=== PATIENT | male | born 1970 | race American Indian/Alaskan Native ===

== ENCOUNTER 2022-09-06 20:06 | Inpatient (IN) | payer OTHER ==
[2022-09-06] MEDS ORDERED: Sodium Chloride 0.9% 10 ML Syringe FLUSH PRN (20:26)
[2022-09-06] MEDS ORDERED: Albuterol/Ipratropium 3.0-0.5 MG/3 ML Neb Soln NEB ONE ×2 (20:31→21:25)
[2022-09-06 21:06] LABS: HEMATOCRIT 38.8 % (40.1-51.0); MEAN CORPUSCULAR HEMOGLOBIN 31.9 pg (25.7-32.2); MEAN CORPUSCULAR HGB CONC 33.5 g/dl (32.2-35.5); MEAN CORPUSCULAR VOLUME 95.1 fl (79.0-92.2); MEAN PLATELET VOLUME 9.8 fl (9.4-12.3); PLATELET COUNT,PLT 273 K/mm3 (163-337); RED BLOOD CELL COUNT 4.08 M/mm3 (4.63-6.08); WHITE BLOOD CELL COUNT,WBC 8.34 K/mm3 (4.23-9.07)
[2022-09-06 21:12] LABS: INR 0.97; PROTHROMBIN TIME 10.4 SECONDS (9.7-12.0)
[2022-09-06] MEDS ORDERED: methylPREDNISolone Sodium Succinate 125 MG/2 ML SDV IVPUSH ONE (21:25)
[2022-09-06 21:28] LABS: LACTIC ACID 1.4 mmol/L (0.4-2.0)
[2022-09-06 21:38] LABS: A/G RATIO 0.7 (1-2); ANION GAP 10.6 (5-15); BILIRUBIN TOTAL 0.9 mg/dL (0.2-1.0); BUN/CREATININE RATIO 7.8 (14-18); C-REACTIVE PROTEIN 2.6 mg/dL (<1.0); CALCIUM 7.8 mg/dL (8.5-10.1); CREATININE 1.8 mg/dL (0.7-1.3); EST CRCL DRUG DOSING (CG) 49.57 mL/min; POTASSIUM,K 2.6 mEq/L (3.5-5.1); PROTEIN TOTAL,TP 7.4 g/dl (6.4-8.2)
[2022-09-06 21:41] LABS: BAND PERCENT MAN 0 % (0-10); BASOPHILS PERCENT MAN 1 (0.2-1.2); EOSINOPHILS PERCENT MAN 0 % (0.8-7.0); LYMPHOCYTES % ATYPICAL MANUAL 0 %; LYMPHOCYTES PERCENT MAN 51 % (20-40); MONOCYTES PERCENT MAN 4 % (2-10); MYELOCYTE PERCENT MAN 1
[2022-09-06 21:42] LABS: PLATELET COUNT ESTIMATE ADEQUATE
[2022-09-06] MEDS ORDERED: Potassium Chloride 20 MEQ Tab.ER PO ONE ×2 (21:45→22:58)
[2022-09-06] MEDS ORDERED: Iopamidol 755 Mg/ML 100 ML Bottle IVPUSH ONE (22:04)
[2022-09-06] MEDS ORDERED: Sodium Chloride 0.9% 10 ML Syringe FLUSH ONE (22:04)
[2022-09-06] MEDS ORDERED: Iopamidol 755 MG/ML 50 ML Bottle IVPUSH ONE (22:06)
[2022-09-06] MEDS ORDERED: Sodium Chloride 0.9% 1,000 ML IV STA (22:06)
[2022-09-06 22:12] LABS: CORONAVIRUS COVID-19 NAA NEGATIVE (NEGATIVE); INFLUENZA A NAA NEGATIVE (NEGATIVE); RESPIRATORY SYNCYTIAL VIR NAA NEGATIVE (NEGATIVE)
[2022-09-06] MEDS ORDERED: Sodium Chloride 0.9% 100 ML IV SCH (22:15)
[2022-09-07] MEDS ORDERED: Sodium Chloride 0.9% 1,000 ML IV SCH (06:00)
[2022-09-07] MEDS ORDERED: Albuterol/Ipratropium 3.0-0.5 MG/3 ML Neb Soln NEB PRN (07:32)
[2022-09-07] MEDS ORDERED: Docusate Sodium 100 MG Cap PO PRN (07:32)
[2022-09-07] MEDS ORDERED: Albuterol 0.083% 2.5 MG/3 ML Neb Soln NEB PRN (08:23)
[2022-09-07] MEDS ORDERED: traMADol 50 MG Tab PO PRN (08:25)
[2022-09-07] MEDS ORDERED: methylPREDNISolone Sodium Succinate 40 MG/1 ML SDV IVPUSH SCH (09:00)
[2022-09-07] MEDS ORDERED: predniSONE 10 MG Tab PO SCH (09:00)
[2022-09-07] MEDS: Albuterol/Ipratropium 3.0-0.5 MG/3 ML Neb Soln NEB SCH ×3 (09:13→20:17)
[2022-09-07] MEDS: Losartan 100 MG Tab PO SCH (09:57)
[2022-09-07] MEDS: Doxycycline Monohydrate 100 MG Cap PO SCH ×2 (09:57→21:26)
[2022-09-07] MEDS: Gabapentin 100 MG Cap PO SCH ×4 (09:57→21:27)
[2022-09-07] MEDS: Gabapentin 600 MG Tab PO SCH ×4 (09:57→21:27)
[2022-09-07] MEDS: Pantoprazole 40 MG Tab.CR PO SCH (09:57)
[2022-09-07] MEDS: predniSONE 20 MG Tab PO SCH (09:58)
[2022-09-07] MEDS: guaiFENesin/Dextromethorphan 100-10 MG/5 ML Soln 5 ML Cup PO SCH ×3 (09:58→21:25)
[2022-09-07] MEDS: traMADol 50 MG Tab PO SCH ×3 (14:06→21:26)
[2022-09-07] MEDS: Acetaminophen 325 MG Tab PO PRN (23:15)
[2022-09-08] MEDS ORDERED: traMADol 50 MG Tab PO SCH (04:00)
[2022-09-08] MEDS: traMADol 50 MG Tab PO SCH ×5 (04:29→20:52)
[2022-09-08] MEDS: Albuterol/Ipratropium 3.0-0.5 MG/3 ML Neb Soln NEB SCH ×5 (04:31→20:11)
[2022-09-08 06:41] LABS: BASOPHILS ABSOLUTE AUTO 0.03 K/mm3 (0.01-0.08); BASOPHILS PERCENT AUTO 0.3 % (0.1-1.2); EOSINOPHILS ABSOLUTE AUTO 0.05 K/mm3 (0.04-0.54); EOSINOPHILS PERCENT AUTO 0.4 (0.8-7.0); HEMATOCRIT 38.7 % (40.1-51.0); HEMOGLOBIN 12.8 gm/dl (13.7-17.5); IMMATURE GRAN ABSOLUTE AUTO 0.02 K/mm3 (0.00-0.10); IMMATURE GRAN PERCENT AUTO 0.2 % (<=1.0); LYMPHOCYTES ABSOLUTE AUTO 2.82 K/mm3 (1.32-3.57); LYMPHOCYTES PERCENT AUTO 24.9 % (21.8-53.1); MEAN CORPUSCULAR HEMOGLOBIN 31.6 pg (25.7-32.2); MEAN CORPUSCULAR HGB CONC 33.1 g/dl (32.2-35.5); MEAN CORPUSCULAR VOLUME 95.6 fl (79.0-92.2); MEAN PLATELET VOLUME 10.2 fl (9.4-12.3); MONOCYTES ABSOLUTE AUTO 0.63 K/mm3 (0.30-0.82); MONOCYTES PERCENT AUTO 5.6 % (5.3-12.2); NEUTROPHILS ABSOLUTE AUTO 7.77 K/mm3 (1.78-5.38); NEUTROPHILS PERCENT AUTO 68.6 % (34.0-67.9); PLATELET COUNT,PLT 251 K/mm3 (163-337); RED BLOOD CELL COUNT 4.05 M/mm3 (4.63-6.08); WHITE BLOOD CELL COUNT,WBC 11.32 K/mm3 (4.23-9.07)
[2022-09-08 06:52] LABS: A/G RATIO 0.7 (1-2); ALBUMIN 2.7 g/dl (3.4-5.0); ANION GAP 10.9 (5-15); BILIRUBIN TOTAL 0.7 mg/dL (0.2-1.0); BUN/CREATININE RATIO 11.1 (14-18); CALCIUM 8.3 mg/dL (8.5-10.1); CREATININE 0.9 mg/dL (0.7-1.3); EST CRCL DRUG DOSING (CG) 99.14 mL/min; POTASSIUM,K 2.9 mEq/L (3.5-5.1); PROTEIN TOTAL,TP 6.8 g/dl (6.4-8.2)
[2022-09-08] MEDS ORDERED: Sodium Chloride 0.9% 500 ML IV ONE (07:42)
[2022-09-08] MEDS: guaiFENesin/Dextromethorphan 100-10 MG/5 ML Soln 5 ML Cup PO SCH ×3 (08:00→20:51)
[2022-09-08] MEDS: Doxycycline Monohydrate 100 MG Cap PO SCH (08:01)
[2022-09-08] MEDS: Gabapentin 100 MG Cap PO SCH ×4 (08:01→20:51)
[2022-09-08] MEDS: Gabapentin 600 MG Tab PO SCH ×4 (08:01→20:51)
[2022-09-08] MEDS: Losartan 100 MG Tab PO SCH (08:01)
[2022-09-08] MEDS: Acetaminophen 325 MG Tab PO PRN (08:01)
[2022-09-08] MEDS: Pantoprazole 40 MG Tab.CR PO SCH (08:01)
[2022-09-08] MEDS: predniSONE 20 MG Tab PO SCH (08:01)
[2022-09-08] MEDS: Potassium Chloride 10 MEQ in Premix Bag 1 BAG IV SCH ×4 (08:02→16:17)
[2022-09-08] MEDS ORDERED: Piperacillin/Tazobactam 4.5 GM in Sodium Chloride 0.9% 100 ML IV ONE (08:14)
[2022-09-08] MEDS: methylPREDNISolone Sodium Succinate 40 MG/1 ML SDV IVPUSH SCH ×2 (09:05→20:53)
[2022-09-08] MEDS ORDERED: Sodium Chloride 0.9% 1,000 ML IV SCH (09:45)
[2022-09-08] MEDS ORDERED: Magnesium Sulfate/Water 4 GM in Premix Bag 1 BAG IV ONE (12:00)
[2022-09-08 12:25] LABS: LACTIC ACID 1.4 mmol/L (0.4-2.0)
[2022-09-08] MEDS: Piperacillin/Tazobactam 4.5 GM in Sodium Chloride 0.9% 100 ML IV SCH (16:18)
[2022-09-08 18:42] LABS: BORDETELLA PARAPERT IS1001 Not Detected (Not Detected)
[2022-09-09] MEDS: Piperacillin/Tazobactam 4.5 GM in Sodium Chloride 0.9% 100 ML IV SCH ×3 (00:26→15:41)
[2022-09-09] MEDS: traMADol 50 MG Tab PO SCH ×6 (00:26→20:59)
[2022-09-09 05:31] LABS: BASOPHILS ABSOLUTE AUTO 0.02 K/mm3 (0.01-0.08); BASOPHILS PERCENT AUTO 0.2 % (0.1-1.2); EOSINOPHILS ABSOLUTE AUTO 0.03 K/mm3 (0.04-0.54); EOSINOPHILS PERCENT AUTO 0.3 (0.8-7.0); HEMATOCRIT 37.1 % (40.1-51.0); HEMOGLOBIN 12.4 gm/dl (13.7-17.5); IMMATURE GRAN ABSOLUTE AUTO 0.02 K/mm3 (0.00-0.10); IMMATURE GRAN PERCENT AUTO 0.2 % (<=1.0); LYMPHOCYTES ABSOLUTE AUTO 1.88 K/mm3 (1.32-3.57); LYMPHOCYTES PERCENT AUTO 21.2 % (21.8-53.1); MEAN CORPUSCULAR HGB CONC 33.4 g/dl (32.2-35.5); MEAN CORPUSCULAR VOLUME 95.9 fl (79.0-92.2); MEAN PLATELET VOLUME 10.2 fl (9.4-12.3); MONOCYTES ABSOLUTE AUTO 0.43 K/mm3 (0.30-0.82); MONOCYTES PERCENT AUTO 4.9 % (5.3-12.2); NEUTROPHILS ABSOLUTE AUTO 6.47 K/mm3 (1.78-5.38); NEUTROPHILS PERCENT AUTO 73.2 % (34.0-67.9); PLATELET COUNT,PLT 232 K/mm3 (163-337); RED BLOOD CELL COUNT 3.87 M/mm3 (4.63-6.08); WHITE BLOOD CELL COUNT,WBC 8.85 K/mm3 (4.23-9.07)
[2022-09-09 05:53] LABS: A/G RATIO 0.6 (1-2); ALBUMIN 2.5 g/dl (3.4-5.0); ANION GAP 12.6 (5-15); BILIRUBIN TOTAL 0.6 mg/dL (0.2-1.0); BUN/CREATININE RATIO 12.2 (14-18); CALCIUM 7.9 mg/dL (8.5-10.1); CREATININE 0.9 mg/dL (0.7-1.3); EST CRCL DRUG DOSING (CG) 99.14 mL/min; MAGNESIUM 2.1 mg/dL (1.8-2.4); POTASSIUM,K 3.6 mEq/L (3.5-5.1); PROTEIN TOTAL,TP 6.6 g/dl (6.4-8.2)
[2022-09-09] MEDS: Albuterol/Ipratropium 3.0-0.5 MG/3 ML Neb Soln NEB SCH ×4 (06:33→20:19)
[2022-09-09] MEDS: methylPREDNISolone Sodium Succinate 40 MG/1 ML SDV IVPUSH SCH ×2 (08:11→21:00)
[2022-09-09] MEDS: Pantoprazole 40 MG Tab.CR PO SCH (08:11)
[2022-09-09] MEDS: guaiFENesin/Dextromethorphan 100-10 MG/5 ML Soln 5 ML Cup PO SCH ×3 (08:11→20:59)
[2022-09-09] MEDS: Gabapentin 600 MG Tab PO SCH ×4 (08:12→20:58)
[2022-09-09] MEDS: Gabapentin 100 MG Cap PO SCH ×4 (08:12→20:58)
[2022-09-09] MEDS: Losartan 100 MG Tab PO SCH (08:12)
[2022-09-10] MEDS: Piperacillin/Tazobactam 4.5 GM in Sodium Chloride 0.9% 100 ML IV SCH ×3 (00:30→16:30)
[2022-09-10] MEDS: traMADol 50 MG Tab PO SCH ×6 (00:30→20:25)
[2022-09-10 05:24] LABS: BASOPHILS ABSOLUTE AUTO 0.02 K/mm3 (0.01-0.08); BASOPHILS PERCENT AUTO 0.2 % (0.1-1.2); EOSINOPHILS PERCENT AUTO 0 (0.8-7.0); HEMATOCRIT 36.3 % (40.1-51.0); IMMATURE GRAN ABSOLUTE AUTO 0.07 K/mm3 (0.00-0.10); IMMATURE GRAN PERCENT AUTO 0.7 % (<=1.0); LYMPHOCYTES ABSOLUTE AUTO 2.24 K/mm3 (1.32-3.57); LYMPHOCYTES PERCENT AUTO 21.6 % (21.8-53.1); MEAN CORPUSCULAR HEMOGLOBIN 31.6 pg (25.7-32.2); MEAN CORPUSCULAR HGB CONC 33.1 g/dl (32.2-35.5); MEAN CORPUSCULAR VOLUME 95.5 fl (79.0-92.2); MEAN PLATELET VOLUME 10.1 fl (9.4-12.3); MONOCYTES PERCENT AUTO 3.8 % (5.3-12.2); NEUTROPHILS ABSOLUTE AUTO 7.66 K/mm3 (1.78-5.38); NEUTROPHILS PERCENT AUTO 73.7 % (34.0-67.9); PLATELET COUNT,PLT 221 K/mm3 (163-337); WHITE BLOOD CELL COUNT,WBC 10.39 K/mm3 (4.23-9.07)
[2022-09-10 05:57] LABS: A/G RATIO 0.7 (1-2); ALBUMIN 2.6 g/dl (3.4-5.0); ANION GAP 10.6 (5-15); BILIRUBIN TOTAL 0.4 mg/dL (0.2-1.0); BUN/CREATININE RATIO 12.2 (14-18); CALCIUM 7.9 mg/dL (8.5-10.1); CREATININE 0.9 mg/dL (0.7-1.3); EST CRCL DRUG DOSING (CG) 99.14 mL/min; MAGNESIUM 1.8 mg/dL (1.8-2.4); POTASSIUM,K 3.6 mEq/L (3.5-5.1); PROTEIN TOTAL,TP 6.4 g/dl (6.4-8.2)
[2022-09-10 06:18] LABS: SLIDE REVIEW ABNORMAL SMEAR
[2022-09-10] MEDS: Albuterol/Ipratropium 3.0-0.5 MG/3 ML Neb Soln NEB SCH ×4 (06:57→20:12)
[2022-09-10] MEDS: guaiFENesin/Dextromethorphan 100-10 MG/5 ML Soln 5 ML Cup PO SCH ×3 (08:29→20:26)
[2022-09-10] MEDS: methylPREDNISolone Sodium Succinate 40 MG/1 ML SDV IVPUSH SCH ×2 (08:29→20:25)
[2022-09-10] MEDS: Losartan 100 MG Tab PO SCH (08:29)
[2022-09-10] MEDS: Gabapentin 600 MG Tab PO SCH ×4 (08:29→20:26)
[2022-09-10] MEDS: Pantoprazole 40 MG Tab.CR PO SCH (08:30)
[2022-09-10] MEDS: Gabapentin 100 MG Cap PO SCH ×4 (08:30→20:26)
[2022-09-10] MEDS ORDERED: guaiFENesin/Dextromethorphan 100-10 MG/5 ML Soln 5 ML Cup PO SCH (19:30)
[2022-09-10] MEDS: Benzonatate 100 MG Cap PO PRN (20:27)
[2022-09-11] MEDS: Piperacillin/Tazobactam 4.5 GM in Sodium Chloride 0.9% 100 ML IV SCH ×2 (00:13→09:25)
[2022-09-11] MEDS: traMADol 50 MG Tab PO SCH ×4 (00:13→13:01)
[2022-09-11] MEDS: Benzonatate 100 MG Cap PO PRN (04:38)
[2022-09-11] MEDS: Albuterol/Ipratropium 3.0-0.5 MG/3 ML Neb Soln NEB SCH ×2 (05:32→09:37)
[2022-09-11 06:02] LABS: BASOPHILS ABSOLUTE AUTO 0.03 K/mm3 (0.01-0.08); BASOPHILS PERCENT AUTO 0.2 % (0.1-1.2); EOSINOPHILS ABSOLUTE AUTO 0.05 K/mm3 (0.04-0.54); EOSINOPHILS PERCENT AUTO 0.4 (0.8-7.0); HEMATOCRIT 36.2 % (40.1-51.0); HEMOGLOBIN 12.1 gm/dl (13.7-17.5); IMMATURE GRAN ABSOLUTE AUTO 0.15 K/mm3 (0.00-0.10); IMMATURE GRAN PERCENT AUTO 1.2 % (<=1.0); LYMPHOCYTES ABSOLUTE AUTO 2.69 K/mm3 (1.32-3.57); LYMPHOCYTES PERCENT AUTO 21.4 % (21.8-53.1); MEAN CORPUSCULAR HEMOGLOBIN 31.8 pg (25.7-32.2); MEAN CORPUSCULAR HGB CONC 33.4 g/dl (32.2-35.5); MEAN PLATELET VOLUME 10.3 fl (9.4-12.3); MONOCYTES ABSOLUTE AUTO 0.45 K/mm3 (0.30-0.82); MONOCYTES PERCENT AUTO 3.6 % (5.3-12.2); NEUTROPHILS ABSOLUTE AUTO 9.18 K/mm3 (1.78-5.38); NEUTROPHILS PERCENT AUTO 73.2 % (34.0-67.9); PLATELET COUNT,PLT 217 K/mm3 (163-337); RED BLOOD CELL COUNT 3.81 M/mm3 (4.63-6.08); WHITE BLOOD CELL COUNT,WBC 12.55 K/mm3 (4.23-9.07)
[2022-09-11 06:22] LABS: A/G RATIO 0.7 (1-2); ALBUMIN 2.6 g/dl (3.4-5.0); ANION GAP 10.6 (5-15); BILIRUBIN TOTAL 0.4 mg/dL (0.2-1.0); BUN/CREATININE RATIO 11.1 (14-18); CALCIUM 8.1 mg/dL (8.5-10.1); CREATININE 0.9 mg/dL (0.7-1.3); EST CRCL DRUG DOSING (CG) 99.14 mL/min; MAGNESIUM 1.7 mg/dL (1.8-2.4); POTASSIUM,K 3.6 mEq/L (3.5-5.1); PROTEIN TOTAL,TP 6.3 g/dl (6.4-8.2)
[2022-09-11] MEDS: methylPREDNISolone Sodium Succinate 40 MG/1 ML SDV IVPUSH SCH (09:22)
[2022-09-11] MEDS: guaiFENesin/Dextromethorphan 100-10 MG/5 ML Soln 5 ML Cup PO SCH (09:23)
[2022-09-11] MEDS: Gabapentin 600 MG Tab PO SCH ×2 (09:23→13:03)
[2022-09-11] MEDS: Gabapentin 100 MG Cap PO SCH ×2 (09:24→13:03)
[2022-09-11] MEDS: Losartan 100 MG Tab PO SCH (09:24)
[2022-09-11] MEDS: Pantoprazole 40 MG Tab.CR PO SCH (09:25)
[2022-09-11] MEDS ORDERED: Magnesium Sulfate/Water 2 GM in Premix Bag 1 BAG IV ONE (13:00)
[2022-09-12] MEDS ORDERED: predniSONE 20 MG Tab PO SCH (09:00)
[2022-09-17] MEDS ORDERED: predniSONE 10 MG Tab PO SCH (09:00)
== END 2022-09-11 15:10 | disposition home or self-care (01) | DRG 871 ==
LOC: JD.ED 20:06 → JD.MS 09-07 06:41
PROVIDERS: ADMIT Internal Medicine; ATTEND Internal Medicine
DX: A41.9 Sepsis, unspecified organism (principal); J96.01 Acute respiratory failure with hypoxia; E87.20 Acidosis, unspecified; N17.9 Acute kidney failure, unspecified; E87.1 Hypo-osmolality and hyponatremia; E83.42 Hypomagnesemia; E87.6 Hypokalemia; I10 Essential (primary) hypertension; K21.9 Gastro-esophageal reflux disease without esophagitis; R65.20 Severe sepsis without septic shock; Z20.822 Contact with and (suspected) exposure to COVID-19; B97.81 Human metapneumovirus as the cause of diseases classified elsewhere; Z87.891 Personal history of nicotine dependence; Z79.899 Other long term (current) drug therapy
CPT/HCPCS: 0241U; 36415; 71046; 71046-26; 71275; 71275-26; 80053; 83605; 83735; 83880; 84132; 85007; 85025; 85027; 85379; 85610; 86140; 87040; 87486; 87581; 87633; 87798; 93005; 93010; 94640; 94660; 94667; 94668; 94760; 94761; 96361; 96374; 99223; 99232; 99233; 99239; 99284; 99285-25; A9270-GY; J2543; J2920; J2930; J3475; J3480; J3490; J7030; J7512; J7620-GY; Q9967